=== PATIENT | male | born 1945 | race Caucasian/White ===

== ENCOUNTER → 2017-10-17 | Outpatient (CLI) | payer OTHER, BC | LOC: CAT 11:00 | DX: H05.20 Unspecified exophthalmos (principal) ==

== ENCOUNTER → 2019-06-14 | Outpatient (CLI) | payer OTHER, BC ==
[~2019-06-14] VITALS: Ht 180.3 cm; Wt 81.6 kg
[~2019-06-14] MED LIST: ASA81BEC PO; MELATONIN5 MG PO; NORVASC 2.5 MG2.5 M1 PO; SYNTHROID112 MC1 PO; THERA1 EAC1 PO; VIAGRA100 MG PO
[2019-06-14 08:36] VITALS: BP 143/79
[2019-06-14 08:44] LABS: HEMATOCRIT 44.7 % (42.0-52.0); HEMOGLOBIN 14.8 gm/dL (14.0-18.0); MCHC 33.2 g/dL (28.0-37.0); MCV 96.4 fL (80.0-100.0); RBC 4.63 mil/uL (4.50-6.00); RDW 13.8 % (10.5-14.5); WBC 4.3 thou/uL (4.0-11.0)
[2019-06-14 08:51] LABS: CALCIUM 8.5 mg/dL (8.5-10.1); POTASSIUM 3.7 mmol/L (3.5-5.1)
[2019-06-14 09:11] LABS: APTT 28.5 Seconds (24.5-32.8); PROTIME 10.7 Seconds (9.3-11.4)
--- NOTE | 2019-06-14 10:34 | EKG ---
[address] [place] [address] ELECTROCARDIOGRAM REPORT Name: FELA KAUFMAN Room #: REG CLValentina Olivas#: [id number] Admission: 06/14/19 Attend Phys: Javed Burk Discharge: Date of : 45 Report #: [id number] THIS REPORT FOR: //name// [facility] Test Date: 2019-06-14 Test Time: 08:48:11 Pat Name: FELA KAUFMAN Department: Room: Gender: M [place]: : 1945 Requested By: Javed Burk Order Number: [id number] MD: Javed Burk Measurements Intervals [place] Rate: 50 P: -15 AR: 150 QRS: -8 QRSD: 99 T: 38 QT: 451 QTc: 412 Interpretive Statements Sinus rhythm Bradycardic rate Poor R-wave progression Nonspecific ST-T wave changes No previous ECG available for comparison Electronically Signed On 06-14-2019 10:33:48 CDT by Javed Burk [email or web address] <ELECTRONICALLY SIGNED> By: Javed Burk MD 06/14/19 1033 0848 0848 Javed Burk MD /JOSSELIN
--- NOTE | 2019-06-18 09:56 | CATHLAB ---
[facility] [address] [place] [address] INVASIVE PROCEDURE REPORT Name: FELA KAUFMAN Room #: REG Brendon#: [id number] Admission: 06/14/19 Attend Phys: Javed Kerr Discharge: Date of : 45 Report #: [id number] THIS REPORT FOR: //name// APPROVED REPORT Study performed: 06/14/2019 10:02:45 Patient Details Patient Status: Out-Patient Room #: The patient is a 73 year-old male Event Personnel Javed Burk Honeycomb Decapper, Mg Castellano RN, aSri Ferreira RTR Reilly Herrera David Monitor, Rick Rosario RTR Monitor Procedures Performed Art Access - R femoral artery* Left Heart Cath w/or w/o Coronaries [id number] [facility] [id number] Initial Mod Sed Same Phys/QHP Gr5y [id number] 85630 Mod Sed Same Phys/QHP Ea [id number] Hemostasis with Manual pressure, supervision of conscious sedation Indication Dyspnea, Markedly elevated coronary calcium score Procedure Narrative The Right Groin^ was infiltrated with 1% Lidocaine subcutaneous anesthesia. A PINNACLE 4FR Sheath #[id number] sheath was inserted into the RFA^. Coronary angiography was performed using coronary diagnostic catheters. The right coronary system was accessed and visualized with a JR4 catheter. The left coronary system was accessed and visualized with a JL5 catheter. The left ventricle was accessed and visualized with a Pigtail catheter. Hemostasis was obtained with manual pressure following sheath removal without any complications. The patient tolerated the procedure well and there were no complications associated with the procedure. There was no hematoma. Intraoperative Conscious Sedation Sedation start time: 11:27 Case end Time: 11:54 Versed 2 mg Fluoro Time: 4.30 minutes Dose: DAP 3473.70 cGycm2 422 mGy [facility] [address] [place] [address] INVASIVE PROCEDURE REPORT Name: MANDEEPFELA Room #: REG Brendon#: [id number] Admission: 06/14/19 Attend Phys: Javed Kerr Discharge: Date of : 45 Report #: [id number] Contrast Type and Amount: Omnipaque 65 ml Coronary Angiography The patient's coronary anatomy is left dominant. Diagnostic Cath Left Main Normal origin and caliber bifurcates that into descending left circumflex. There is a proximal band but no obstructive lesions noted LAD Small-caliber type III vessel which is heavily calcified on fluoroscopy proximally. The vessel does have what appears to be 50% narrowing from the calcified diameter I'm visualized on fluoroscopy. The vessel courses in the anterior interventricular sulcus of the irregularities noted but no high-grade obstructive lesions. Diagonal 1 Small-caliber vessel has a 30-40% lesions proximal third which is not flow-limiting and a continuous coursing along the anterolateral wall.) Circumflex Large-caliber dominant vessel which has evidence of significant calcifications proximally. These do not appear to be flow-limiting in nature. The first marginal branch is small nondominant feel high-grade disease. Second marginal branch is small without high-grade lesions noted although not very long in length. The vessel then continues posteriorly where he gives a history of large posterior wall branch and large posterior descending artery showing minimal irregularities noted OM1 Small caliber vessel with irregularities noted OM2 Moderate caliber vessel coursing on the posterior inferior wall without high-grade lesions present although irregularities are noted L PDA Moderate to large caliber vessel without significant high-grade lesions present Right Coronary Small nondominant vessel without significant obstructive lesions Left Ventriculography Left Ventriculography was not performed. Hemodynamics The aortic pressure is 145/76 mmHg with a mean of 69 mmHg. The left ventricular pressure is 142/6 mmHg with a mean of mmHg. The left ventricular end diastolic pressure is 22 mmHg. Conclusion 1. Coronary disease moderate based on reduce diameter from epicardial calcification [facility] [address] [place] [address] INVASIVE PROCEDURE REPORT Name: FELA KAUFMAN Room #: REG [facility]#: [id number] Admission: 06/14/19 Attend Phys: Javed Kerr Discharge: Date of : 45 Report #: [id number] 2. Abnormal hemodynamics with elevated left ventricular end-diastolic pressure Recommendations Cardiac Risk Reduction Program [facility] <ELECTRONICALLY SIGNED> By: Javed Burk MD 06/18/1956 5 5 Javed Burk MD /INF
== END | disposition home or self-care (01) ==
LOC: CATH 08:01
PROVIDERS: Internal Medicine
DX: R93.1 Abnormal findings on diagnostic imaging of heart and coronary circulation (principal); I25.10 Atherosclerotic heart disease of native coronary artery without angina pectoris; I11.0 Hypertensive heart disease with heart failure; I50.30 Unspecified diastolic (congestive) heart failure; E03.9 Hypothyroidism, unspecified; E05.00 Thyrotoxicosis with diffuse goiter without thyrotoxic crisis or storm; Z79.82 Long term (current) use of aspirin; Z79.899 Other long term (current) drug therapy; Z98.890 Other specified postprocedural states